=== PATIENT | female | born 1960 | race Caucasian/White ===

== ENCOUNTER 2024-04-18 01:07 | Emergency (ER) | payer SELFPAY ==
[~2024-04-18] VITALS: Ht 152.4 cm; Wt 70.3 kg
[2024-04-18 01:15] VITALS: BP_SYST 158; PULSE 63; RESP 21; TEMP 98.1; O2SAT 96
[2024-04-18] MEDS: ONDANSETRON HCL 4 MG/2 ML VIAL IVP ONE (02:04)
[2024-04-18 02:11] LABS: BASOPHILS % (AUTO) 1.1 % (0.0-2.0); EOSINOPHILS # (AUTO) 0.2 K/uL (0.0-0.4); EOSINOPHILS % (AUTO) 4.5 % (0.0-4.0); HEMATOCRIT 37.6 % (36-48); LYMPHOCYTES # (AUTO) 1.5 K/uL (1.0-5.5); LYMPHOCYTES % (AUTO) 36.3 % (20.5-51.5); MEAN CORPUSCULAR HEMOGLOBIN 32 pg (27-31); MEAN CORPUSCULAR HGB CONC 35 % (32-36); MEAN CORPUSCULAR VOLUME 92 fL (79.0-98.0); MONOCYTES # (AUTO) 0.5 K/uL (0.0-1.0); MONOCYTES % (AUTO) 11.7 % (1.7-9.3); NEUTROPHILS # (AUTO) 1.9 K/uL (1.8-7.7); NEUTROPHILS % (AUTO) 46.4 % (40.0-70.0); PLATELET COUNT (AUTO) 220 K/uL (130-430); RED BLOOD CELL COUNT(AUTO) 4.07 MIL/uL (4.2-6.2); RED CELL DISTRIBUTION WIDTH 13.1 % (9.0-15.0); WHITE BLOOD COUNT (AUTO) 4.1 K/uL (4.8-10.8)
[2024-04-18 02:27] LABS: BILIRUBIN,URINE NEGATIVE (NEGATIVE); BLOOD, URINE NEGATIVE (NEGATIVE); CLARITY/URINE CLEAR (CLEAR); COLOR,URINE YELLOW (YELLOW); GLUCOSE,URINE NEGATIVE (NEGATIVE); KETONES,URINE NEGATIVE (NEGATIVE); LEUKOCYTE ESTERASE ,URINE NEGATIVE (NEGATIVE); NITRITE, URINE NEGATIVE (NEGATIVE); PH,URINE 7.5 (5.0-8.0); PROTEIN URINE NEGATIVE (NEGATIVE); UROBILINOGEN,URINE 0.2 (0.2-1.0)
[2024-04-18 02:29] LABS: ANION GAP 8 (5-15); CARBON DIOXIDE 29 mmol/L (23-29); CHLORIDE 103 mmol/L (98-107); CREATININE 0.77 mg/dL (0.55-1.30); GFR AFRICAN AMERICAN 98 mL/min (>90); GLUCOSE 167 mg/dL (74-106); SODIUM SERUM 140 mmol/L (136-145); UREA NITROGEN, BLOOD 6 mg/dL (8-21)
[2024-04-18] MEDS: MECLIZINE HCL 25 MG TABLET (ANITVERT) PO ONE (02:31)
[2024-04-18 02:32] LABS: GFR NON AFRICAN-AMERICAN 81 mL/min (>90)
[2024-04-18 02:34] LABS: INR 0.9 (0.8-1.2); PROTHROMBIN TIME 9.5 SECS (9.5-12.5)
[2024-04-18] MEDS ORDERED: MECL-108 PO (05:23)
[2024-04-18 06:31] VITALS: BP_SYST 154; PULSE 66; RESP 20; TEMP 98.4; O2SAT 97
== END 2024-04-18 06:24 | disposition home or self-care (01) ==
LOC: SED 01:07
DX: R11.2 Nausea with vomiting, unspecified (principal); E11.9 Type 2 diabetes mellitus without complications; E78.5 Hyperlipidemia, unspecified; I10 Essential (primary) hypertension; Z79.899 Other long term (current) drug therapy
CPT/HCPCS: 99285; 96374; 70450; 71045; 80048; 81001; 83880; 85025; 85610; 85730; 84484; 36415; 81003; J2405; J8597